=== PATIENT | female | born 1960 | race Caucasian/White ===

== ENCOUNTER 2017-03-05 16:37 | Emergency (ER) | payer OTHER ==
[~2017-03-05] VITALS: Ht 157.5 cm; Wt 87.1 kg
[2017-03-05] MEDS ORDERED: NS 1,000 ML IV SCH (16:50)
[2017-03-05] MEDS ORDERED: METOCLOPRAMIDE INJ 10MG/2ML VIAL (J2765) IV ONE (17:00)
[2017-03-05] MEDS ORDERED: MECLIZINE 25 MG TABLET PO ONE (17:00)
[2017-03-05] MEDS ORDERED: ZETI10TA2 PO (17:01)
[2017-03-05] MEDS ORDERED: CYCL10TA PO (17:01)
[2017-03-05] MEDS ORDERED: PARO20TA3 PO (17:01)
[2017-03-05] MEDS ORDERED: ASPI81TA85 PO (17:01)
[2017-03-05] MEDS ORDERED: MULT1CHW41 PO (17:01)
[2017-03-05] MEDS ORDERED: ESTR1TAB PO (17:01)
[2017-03-05] MEDS ORDERED: HYOS0.1258 PO (17:01)
[2017-03-05] MEDS ORDERED: VERA120T2 PO (17:01)
[2017-03-05] MEDS ORDERED: PRAV40TA2 PO (17:01)
--- NOTE | 2017-03-05 17:11 | REP ---
Clinical: Altered mental status . Comparison: None . Findings: The ventricles, sulci, and cisterns are normal in position and appearance. Ray-white differentiation is maintained. No acute intracranial hemorrhage, mass/mass effect, pathology or trauma/injury. No evidence for acute infarction. No extra-axial fluid collection. Calvarium is intact. Paranasal sinuses and mastoid air cells are clear. Impression: Normal noncontrast head CT. No evidence for acute intracranial pathology or trauma/injury. Signed by Wil Canas MD 03/05/2017 05:03 P
[2017-03-05 17:47] LABS: BASO % 0.3 % (0.0-1.0); EOS % 0.3 % (0.0-3.0); LARGE UNSTAINED CELL # 0.1 K/mm3 (0.0-0.4); LARGE UNSTAINED CELL % 0.7 % (0.0-4.0); LYMPH # 0.8 K/mm3 (1.5-4.5); LYMPH % 7.9 % (24.0-44.0); MEAN CORPUSCULAR HEMOGLOBIN 29.7 pg (27.0-33.0); MEAN CORPUSCULAR HGB CONC 33.3 g/dl (32.0-36.5); MEAN CORPUSCULAR VOLUME 89.2 fl (80.0-96.0); MONO # 0.1 K/mm3 (0.0-0.8); MONO % 1.3 % (0.0-5.0); NEUTROPHILS # 8.8 K/mm3 (1.8-7.7); NEUTROPHILS % 89.6 % (36.0-66.0); PLATELET COUNT, AUTOMATED 376 k/mm3 (150-450); RED CELL DISTRIBUTION WIDTH 13.2 % (11.5-14.5); WHITE BLOOD COUNT 9.8 K/mm3 (4.0-10.0)
[2017-03-05 18:03] LABS: ALBUMIN/GLOBULIN RATIO 1.25 (1.00-1.93); ALKALINE PHOSPHATASE 70 U/L (45-117); ALT/SGPT 22 U/L (12-78); ANION GAP 9 MEQ/L (8-16); AST/SGOT 14 U/L (15-37); BILIRUBIN,DIRECT 0.1 MG/DL (0.0-0.2); BILIRUBIN,TOTAL 0.4 MG/DL (0.2-1.0); BLOOD UREA NITROGEN 13 MG/DL (7-18); CALCIUM LEVEL 8.7 MG/DL (8.5-10.1); CARBON DIOXIDE LEVEL 23 MEQ/L (21-32); CHLORIDE LEVEL 107 MEQ/L (98-107); CREATININE FOR GFR 0.62 MG/DL (0.55-1.02); GLOMERULAR FILTRATION RATE > 60.0 (>51); GLUCOSE, FASTING 121 MG/DL (70-105); POTASSIUM SERUM 3.6 MEQ/L (3.5-5.1); SODIUM LEVEL 139 MEQ/L (136-145); TOTAL PROTEIN 7.2 GM/DL (6.4-8.2)
[2017-03-05 18:31] VITALS: BP 116/56
--- NOTE | 2017-03-06 07:20 | ECGEPIP ---
Stationary ECG Study [facility] - ED Test Date: 2017-03-05 Pat Name: NARA STAFFORD Department: Room: - Gender: F Director [employer]: lynsey : 1960 Requested By: KAMINI PALMER Order Number: [id number] Reading MD: Maranda Hirsch Measurements Intervals [place] Rate: 89 P: 51 CT: 177 QRS: 7 QRSD: 97 T: 30 QT: 361 QTc: 442 Interpretive Statements SINUS RHYTHM LEFT VENTRICULAR HYPERTROPHY AND ST-T CHANGE VS ISCHEMIA DECREASED RATE 09/15/13 Electronically Signed On 03-06-2017 7:20:11 EDT by Maranda Hirsch
== END 2017-03-05 18:58 | disposition home or self-care (01) ==
LOC: M ED 17:47
DX: H81.49 Vertigo of central origin, unspecified ear (principal); H83.09 Labyrinthitis, unspecified ear; Z79.82 Long term (current) use of aspirin; Z79.899 Other long term (current) drug therapy; E78.00 Pure hypercholesterolemia, unspecified; I10 Essential (primary) hypertension; M19.90 Unspecified osteoarthritis, unspecified site; M54.5 Low back pain; F41.9 Anxiety disorder, unspecified; F32.9 Major depressive disorder, single episode, unspecified

== ENCOUNTER → 2017-05-06 | Outpatient (CLI) | payer OTHER ==
[~2017-05-06] MED LIST: ASPI81TA85 PO; CYCL10TA PO; ESTR1TAB PO; HYOS0.1258 PO; MULT1CHW41 PO; PARO20TA3 PO; PRAV40TA2 PO; VERA120T2 PO; ZETI10TA30 PO
--- NOTE | 2017-05-06 15:16 | REPMRS ---
Patient History The patient states she had a clinical breast exam in 04/26 Patient is postmenopausal. Family history of breast cancer in paternal grandmother. Taking estrogen for 7 years. Digital Woman Screen Mammo: May 06, 2017 - Exam #: [id number] Bilateral CC and MLO view(s) were taken. Technologist: Zulay Costello, Technologist Prior study comparison: February 28, 2016, digital woman screen mammo performed at [facility]. February 27, 2015, digital woman screen mammo performed at [facility] to [facility]. FINDINGS: There are scattered fibroglandular densities. There has been no change in the appearance of the mammogram from the prior studies. There is a mild amount of residual fibroglandular tissue which is fairly symmetric. There is no interval development of dominant mass, architectural distortion, or clustered microcalcification suggestive of malignancy. ASSESSMENT: BI-RADS/ACR category 1 mammogram. Negative. Recommendation Routine screening mammogram in 1 year (for women over age 40). This mammogram was interpreted with the aid of an FDA-approved computer-aided dectection system. Electronically Signed By: Jack Ray MD 05/06/17 [id number]
== END ==
LOC: M WHC 12:48
PROVIDERS: ATTEND Nurse Practitioner Women's Health
DX: Z12.31 Encounter for screening mammogram for malignant neoplasm of breast (principal); Z78.0 Asymptomatic menopausal state; Z79.890 Hormone replacement therapy

== ENCOUNTER → 2017-05-06 | Outpatient (REF) | payer OTHER | LOC: M SFHCWAGY 13:25 | PROVIDERS: ATTEND Nurse Practitioner Women's Health | DX: Z12.4 Encounter for screening for malignant neoplasm of cervix (principal) ==

== ENCOUNTER 2018-05-04 05:47 | Day surgery (SDC) | payer OTHER ==
[~2018-05-04 05:47] MED LIST changes: -ASPI81TA85 PO; -CYCL10TA PO; -ESTR1TAB PO; -HYOS0.1258 PO; +LIDOCAINE 1% MDV 20ML VIAL SQ; +LR 1,000 ML IV; -MULT1CHW41 PO; -PARO20TA3 PO; -PRAV40TA2 PO; -VERA120T2 PO; -ZETI10TA30 PO
[2018-05-04] MEDS ORDERED: LIDOCAINE 2% INJ 100 MG/5 ML SDV (FOR ANES.) As Ordered ×2 (07:18)
[2018-05-04] MEDS ORDERED: MIDAZOLAM INJ 2 MG/2 ML VIAL (J2250) As Ordered ×2 (07:18)
[2018-05-04] MEDS ORDERED: PROPOFOL 200 MG/20 ML VIAL As Ordered ×2 (07:18)
[2018-05-04] MEDS ORDERED: fentaNYL 100 MCG/2 ML INJECTION (J3010) As Ordered ×2 (07:19)
[2018-05-04] MEDS: LIDOCAINE 2% MDV 20 ML VIAL As Ordered ×2 (07:46)
[2018-05-04] MEDS: BUPIVACAINE HCL 0.5% 10 ML VIAL As Ordered ×2 (07:47)
[2018-05-04] MEDS ORDERED: ONDANSETRON 4MG/2ML VIAL (J2405) As Ordered ×2 (07:49)
[2018-05-04] MEDS ORDERED: dexameTHASONE 4 MG/ML 1ML VIAL (J1100) As Ordered ×2 (07:49)
[2018-05-04] MEDS ORDERED: KETOROLAC 60 MG/2 ML VIAL (J1885) As Ordered ×2 (07:49)
[2018-05-04] MEDS: dexameTHASONE 4 MG/ML 1ML VIAL (J1100) As Ordered ×2 (07:56)
== END 2018-05-04 09:25 | disposition home or self-care (01) ==
LOC: M SDC 05:47
DX: M72.2 Plantar fascial fibromatosis (principal); M77.32 Calcaneal spur, left foot; B35.1 Tinea unguium; I10 Essential (primary) hypertension; R00.0 Tachycardia, unspecified; E78.5 Hyperlipidemia, unspecified; F41.9 Anxiety disorder, unspecified; M12.9 Arthropathy, unspecified; F32.9 Major depressive disorder, single episode, unspecified; Z88.8 Allergy status to other drugs, medicaments and biological substances; Z91.040 Latex allergy status; Z91.048 Other nonmedicinal substance allergy status; Z79.899 Other long term (current) drug therapy; Z79.82 Long term (current) use of aspirin; Z78.0 Asymptomatic menopausal state; Z92.3 Personal history of irradiation
CPT/HCPCS: 29893

== ENCOUNTER → 2018-07-06 | Outpatient (CLI) | payer OTHER | LOC: M WHC 14:40 | DX: Z12.31 Encounter for screening mammogram for malignant neoplasm of breast (principal); N60.31 Fibrosclerosis of right breast; N60.32 Fibrosclerosis of left breast | CPT/HCPCS: 77067 ==

== ENCOUNTER → 2018-07-06 | Outpatient (REF) | payer OTHER | LOC: M SFHCWAGY 14:42 | DX: Z12.4 Encounter for screening for malignant neoplasm of cervix (principal) ==

== ENCOUNTER 2019-02-08 13:32 | Emergency (ER) | payer OTHER ==
[~2019-02-08] VITALS: Ht 157.5 cm; Wt 86.8 kg
[2019-02-08 13:32] VITALS: BP 145/75
[~2019-02-08 13:32] MED LIST changes: +ASPI81TA85 PO; +CYCL10TA PO; +ESTR1TAB PO; +HYOS0.1258 PO; -LIDOCAINE 1% MDV 20ML VIAL SQ; +LOSA50TA88 PO; -LR 1,000 ML IV; +MEDR1TAB2 PO; +PARO15TA PO; +PARO20TA3 PO; +PRAV20TA2 PO; +PRAV40TA2 PO; +VERA120T2 PO; +ZETI10TA30 PO; +[UNRECOGNIZED DRUG - CODE] PO
[2019-02-08] MEDS ORDERED: FLAX1CAP5 PO (13:57)
[2019-02-08] MEDS ORDERED: ONDA4TAB6 PO (13:57)
[2019-02-08] MEDS ORDERED: CALCCAP4 PO (13:57)
[2019-02-08] MEDS ORDERED: MECL1CHW PO (13:57)
[2019-02-08] MEDS ORDERED: FLON1SPR NARES (13:57)
[2019-02-08] MEDS ORDERED: ALPRAZolam 0.5 MG TAB PO ONE (14:00)
[2019-02-08] MEDS ORDERED: XANA0.25 PO (14:51)
== END 2019-02-08 14:58 | disposition home or self-care (01) ==
LOC: M ED 13:32
DX: F41.1 Generalized anxiety disorder (principal); F43.0 Acute stress reaction; Z79.82 Long term (current) use of aspirin; Z79.899 Other long term (current) drug therapy; Z91.89 Other specified personal risk factors, not elsewhere classified; Z88.8 Allergy status to other drugs, medicaments and biological substances

== ENCOUNTER → 2019-07-07 | Outpatient (CLI) | payer OTHER ==
[~2019-07-07] MED LIST changes: +CALCCAP4 PO; +FLAX1CAP5 PO; +FLON1SPR NARES; +MECL1CHW PO; +ONDA4TAB6 PO; +XANA0.25 PO; +ZETI10TA16 PO; -ZETI10TA30 PO
--- NOTE | 2019-07-07 16:18 | REPMRS ---
Patient History The patient states she had a clinical breast exam in 06/2019. Patient is postmenopausal. Family history of breast cancer in paternal grandmother. Taking estrogen for 9 years. 3D TOMOSYNTHESIS WAS PERFORMED. The [facility] lifetime risk for breast cancer is 15.0%. Digital Woman Screen Mammo: July 07, 2019 - Exam #: [id number] Bilateral CC and MLO view(s) were taken. Technologist: Jodi Celaya, Technologist Prior study comparison: July 06, 2018, bilateral digital woman screen mammo performed at [facility]. May 06, 2017, digital woman screen mammo performed at [facility]. FINDINGS: There are scattered fibroglandular densities. There has been no change in the appearance of the mammogram from the prior studies. There is a mild amount of residual fibroglandular tissue which is fairly symmetric. There is no interval development of dominant mass, architectural distortion, or clustered microcalcification suggestive of malignancy. Assessment: BI-RADS/ACR category 1 mammogram. Negative Mammogram. Recommendation Routine screening mammogram in 1 year (for women over age 40). This mammogram was interpreted with the aid of an FDA-approved computer-aided dectection system. Electronically Signed By: Jack Ray MD 07/07/19 [id number]
== END ==
LOC: M WHC 15:02
PROVIDERS: ATTEND Nurse Practitioner Women's Health
DX: Z12.31 Encounter for screening mammogram for malignant neoplasm of breast (principal); Z78.0 Asymptomatic menopausal state; Z79.899 Other long term (current) drug therapy

== ENCOUNTER 2020-06-01 21:52 | Emergency (ER) | payer OTHER ==
[~2020-06-01] VITALS: Ht 157.5 cm; Wt 87.1 kg
[~2020-06-01 21:52] MED LIST changes: -ASPI81TA85 PO; +ASPI81TA86 PO; +CYCL-707 PO; -CYCL10TA PO; -PARO15TA PO; +PARO30TA4 PO; -VERA120T2 PO; +VERA120T9 PO
[2020-06-01] MEDS ORDERED: vitamin D (22:05)
[2020-06-01] MEDS ORDERED: RABIES IMMUNE GLOBULIN 1500 INTERNATIONAL UNIT/5ML VIAL (90375) IM ONE (23:15)
[2020-06-01] MEDS ORDERED: RABIES VACCINE HUMAN 2.5 INTERNATIONAL UNITS/ML VIAL (90675) IM ONE (23:15)
[2020-06-01] MEDS ORDERED: TETANUS/DIPHTHERIA TOX ADSORB ADULT 0.5ML SYR/VIAL (90714) IM ONE (23:15)
[2020-06-02 00:56] VITALS: BP 133/80
== END 2020-06-02 01:02 | disposition home or self-care (01) ==
LOC: M ED 21:52
DX: Z20.3 Contact with and (suspected) exposure to rabies (principal); Z23 Encounter for immunization; I10 Essential (primary) hypertension; E78.5 Hyperlipidemia, unspecified; Z79.899 Other long term (current) drug therapy; Z88.8 Allergy status to other drugs, medicaments and biological substances

== ENCOUNTER 2020-06-05 17:24 | Emergency (ER) | payer OTHER ==
[~2020-06-05] VITALS: Ht 157.5 cm; Wt 86.8 kg
[~2020-06-05 17:24] MED LIST changes: +vitamin D
[2020-06-05] MEDS ORDERED: RABIES VACCINE HUMAN 2.5 INTERNATIONAL UNITS/ML VIAL (90675) IM ONE (17:45)
[2020-06-05 18:45] VITALS: BP 133/67
== END 2020-06-05 18:46 | disposition home or self-care (01) ==
LOC: M ED 17:24
DX: Z23 Encounter for immunization (principal); Z20.3 Contact with and (suspected) exposure to rabies

== ENCOUNTER 2020-06-09 17:28 | Emergency (ER) | payer OTHER ==
[~2020-06-09] VITALS: Ht 157.5 cm; Wt 87.3 kg
[2020-06-09 17:29] VITALS: BP 131/76
[2020-06-09] MEDS ORDERED: RABIES VACCINE HUMAN 2.5 INTERNATIONAL UNITS/ML VIAL (90675) IM ONE (18:00)
== END 2020-06-09 18:13 | disposition home or self-care (01) ==
LOC: M ED 17:28
DX: Z23 Encounter for immunization (principal); Z20.3 Contact with and (suspected) exposure to rabies; Z79.82 Long term (current) use of aspirin; Z79.899 Other long term (current) drug therapy; Z88.8 Allergy status to other drugs, medicaments and biological substances

== ENCOUNTER 2020-06-16 16:32 | Emergency (ER) | payer OTHER ==
[~2020-06-16] VITALS: Ht 157.5 cm; Wt 86.9 kg
[2020-06-16 16:33] VITALS: BP 136/71
[2020-06-16] MEDS ORDERED: RABIES VACCINE HUMAN 2.5 INTERNATIONAL UNITS/ML VIAL (90675) IM ONE (17:00)
== END 2020-06-16 17:20 | disposition home or self-care (01) ==
LOC: M ED 16:32
DX: Z23 Encounter for immunization (principal); I10 Essential (primary) hypertension; E78.5 Hyperlipidemia, unspecified

== ENCOUNTER → 2020-07-25 | Outpatient (CLI) | payer OTHER ==
--- NOTE | 2020-07-26 08:13 | REPMRS ---
Patient History The patient states she had a clinical breast exam in July 2020. Family history of breast cancer in paternal grandmother. Taking estrogen for 9 years. Digital Woman Screen Mammo: July 25, 2020 - Exam #: [id number] Bilateral CC and MLO view(s) were taken. Technologist: Reema Villeda, Technologist Prior study comparison: July 07, 2019, bilateral digital woman screen mammo performed at [facility]. July 06, 2018, bilateral digital woman screen mammo performed at [facility]. May 06, 2017, digital woman screen mammo performed at [facility]. FINDINGS: There are scattered fibroglandular densities. The Volpara volumetric breast density category is:B. There has been no change in the appearance of the mammogram from the prior studies. There is a mild amount of scattered fibroglandular density which is fairly symmetric. There is no interval development of dominant mass, architectural distortion, or grouped microcalcification suggestive of malignancy. 3-D tomosynthesis shows no additional findings. Assessment: BI-RADS/ACR category 1 mammogram. Negative Mammogram. Recommendation Routine screening mammogram of both breasts in 1 year (for women over age 40). This patient's Lifetime Breast Cancer Risk is estimated at 14.5 %. This mammogram was interpreted with the aid of an FDA-approved computer-aided dectection system. Electronically Signed By: Feng Byers MD 07/26/20 0812
== END ==
LOC: M WHC 14:24
PROVIDERS: ATTEND Nurse Practitioner Women's Health
DX: Z12.31 Encounter for screening mammogram for malignant neoplasm of breast (principal); Z92.23 Personal history of estrogen therapy

== ENCOUNTER → 2021-04-25 | Outpatient (CLI) | payer OTHER ==
[2021-04-25 12:01] LABS: BASO # 0.1 10^3/uL (0.0-0.2); EOS # 0.4 10^3/uL (0.0-0.5); EOS % 5.5 % (0.0-3.0); HEMATOCRIT 41.1 % (36.0-47.0); HEMOGLOBIN 13.3 g/dl (12.0-15.5); LYMPH # 1.9 10^3/uL (1.5-5.0); LYMPH % 24.2 % (24.0-44.0); MEAN CORPUSCULAR HEMOGLOBIN 29.4 pg (27.0-33.0); MEAN CORPUSCULAR HGB CONC 32.4 g/dl (32.0-36.5); MEAN CORPUSCULAR VOLUME 90.9 fl (80.0-96.0); MONO # 0.7 10^3/uL (0.0-0.8); MONO % 8.9 % (2.0-8.0); NEUTROPHILS # 4.6 10^3/uL (1.5-8.5); PLATELET COUNT, AUTOMATED 351 10^3/uL (150-450); RED BLOOD COUNT 4.52 10^6/uL (4.00-5.40); WHITE BLOOD COUNT 7.6 10^3/uL (4.0-10.0)
[2021-04-25 12:45] LABS: ALBUMIN 3.6 GM/DL (3.2-5.2); ALT/SGPT 24 U/L (12-78); BILIRUBIN,TOTAL 0.4 MG/DL (0.2-1.0); BLOOD UREA NITROGEN 13 MG/DL (7-18); CALCIUM LEVEL 9.2 MG/DL (8.8-10.2); CARBON DIOXIDE LEVEL 26 MEQ/L (21-32); CHLORIDE LEVEL 109 MEQ/L (98-107); CHOLESTEROL LEVEL 182 MG/DL (<200); CREATININE FOR GFR 0.64 MG/DL (0.55-1.30); FERRITIN 36 NG/ML (8-252); FOLATE > 24.0 NG/ML; FREE T4 0.95 NG/DL (0.76-1.46); GLOMERULAR FILTRATION RATE > 60.0 (>45); GLUCOSE, FASTING 93 MG/DL (70-100); HDL CHOLESTEROL 52 MG/DL (>40); IRON (FE) 70 UG/DL (50-170); LDL CHOLESTEROL 97 MG/DL (<100); NON-HDL-C 130 MG/DL; PERCENT SATURATION 16.5 % (13.2-45.0); POTASSIUM SERUM 3.9 MEQ/L (3.5-5.1); SODIUM LEVEL 143 MEQ/L (136-145); TOTAL IRON BINDING CAPACITY 423 UG/DL (250-450); TRIGLYCERIDES LEVEL 165 MG/DL (<150); VITAMIN B12 LEVEL 463 PG/ML
[2021-04-25 13:08] LABS: HEMOGLOBIN A1c 5.6 %
== END ==
LOC: M LAB 10:25
PROVIDERS: ATTEND Nurse Practitioner Family
DX: G47.00 Insomnia, unspecified (principal)

== ENCOUNTER → 2022-02-02 | Outpatient (REF) | payer OTHER ==
[~2022-02-02] MED LIST changes: +LOSA50TA28 PO; -LOSA50TA88 PO
== END ==
LOC: M PLALAB 17:08
PROVIDERS: ATTEND Advanced Practice Midwife
DX: Z12.4 Encounter for screening for malignant neoplasm of cervix (principal)

== ENCOUNTER → 2022-02-02 | Outpatient (CLI) | payer OTHER | LOC: M WHC 13:05 | PROVIDERS: ATTEND Advanced Practice Midwife | DX: Z12.31 Encounter for screening mammogram for malignant neoplasm of breast (principal) ==

== ENCOUNTER → 2023-02-04 | Outpatient (CLI) | payer OTHER | LOC: M WHC 15:55 | PROVIDERS: ATTEND Specialist | DX: Z12.31 Encounter for screening mammogram for malignant neoplasm of breast (principal) ==

== ENCOUNTER → 2023-07-27 | Outpatient (REF) | payer OTHER ==
[~2023-07-27] MED LIST changes: +EZET10TA58 PO; -ZETI10TA16 PO
== END ==
LOC: M SFHCWAGY 12:58
PROVIDERS: ATTEND Specialist
DX: Z12.4 Encounter for screening for malignant neoplasm of cervix (principal)

== ENCOUNTER → 2024-02-08 | Outpatient (CLI) | payer OTHER | LOC: M WHC 15:24 | PROVIDERS: ATTEND Nurse Practitioner Family | DX: Z12.31 Encounter for screening mammogram for malignant neoplasm of breast (principal) ==

== ENCOUNTER → 2024-02-28 | Outpatient (CLI) | payer OTHER | LOC: M WUC 12:53 | PROVIDERS: ATTEND Student in an Organized Health Care Education/Training Program | DX: S20.211A Contusion of right front wall of thorax, initial encounter (principal); X58.XXXA Exposure to other specified factors, initial encounter; Y92.9 Unspecified place or not applicable ==

== ENCOUNTER 2024-05-27 16:15 | Emergency (ER) | payer OTHER ==
[~2024-05-27] VITALS: Ht 157.5 cm; Wt 86.8 kg
[~2024-05-27 16:15] MED LIST changes: +ONDA-282 PO; -ONDA4TAB6 PO
[2024-05-27] MEDS ORDERED: LEXA1TAB2 PO (16:31)
[2024-05-27 18:49] LABS: BASO # 0.1 10^3/uL (0.0-0.2); EOS # 0.1 10^3/uL (0.0-0.5); HEMATOCRIT 41.4 % (36.0-47.0); HEMOGLOBIN 13.9 g/dl (12.0-15.5); LYMPH # 1.5 10^3/uL (1.5-5.0); LYMPH % 21.3 % (24.0-44.0); MEAN CORPUSCULAR HEMOGLOBIN 29.9 pg (27.0-33.0); MEAN CORPUSCULAR HGB CONC 33.6 g/dl (32.0-36.5); MONO # 0.6 10^3/uL (0.0-0.8); MONO % 8.2 % (2.0-8.0); NEUTROPHILS # 4.8 10^3/uL (1.5-8.5); NEUTROPHILS % 67.4 % (36.0-66.0); PLATELET COUNT, AUTOMATED 339 10^3/uL (150-450); RED BLOOD COUNT 4.65 10^6/uL (4.00-5.40); WHITE BLOOD COUNT 7.2 10^3/uL (4.0-10.0)
[2024-05-27] MEDS: NS 1,000 ML IV ONE (19:05)
[2024-05-27] MEDS ORDERED: ISOVUE-370 76% 100ML VIAL As Ordered ONE (19:21)
[2024-05-27 19:22] LABS: ALKALINE PHOSPHATASE 82 U/L (46-116); ALT/SGPT 18 U/L (7.0-40); AST/SGOT 18 U/L (<34); BILIRUBIN,TOTAL 0.8 MG/DL (0.3-1.2); BLOOD UREA NITROGEN 7 MG/DL (9-23); CALCIUM LEVEL 9.3 MG/DL (8.3-10.6); CARBON DIOXIDE LEVEL 26 MMOL/L (20-31); CHLORIDE LEVEL 107 MMOL/L (98-107); GLOMERULAR FILTRATION RATE > 60.0 (>45); GLUCOSE, FASTING 89 MG/DL (74-106); POTASSIUM SERUM 3.6 MMOL/L (3.5-5.1); SODIUM LEVEL 139 MMOL/L (136-145)
[2024-05-27 19:31] LABS: CPK CREATINE PHOSPHOKINASE 100 U/L (34-145)
[2024-05-27 21:32] LABS: CK-MB VALUE MASS < 1.0 NG/ML (<3.6)
[2024-05-27 21:33] LABS: CPK CREATINE PHOSPHOKINASE 92 U/L (34-145); MB/CK RELATIVE INDEX 1.08 (< OR =4)
[2024-05-27 23:12] VITALS: TEMP 97.1
[2024-05-27 23:37] VITALS: BP 133/75; O2SAT 96
== END 2024-05-27 23:50 | disposition home or self-care (01) ==
LOC: M ED 16:15
DX: R42 Dizziness and giddiness (principal); F41.9 Anxiety disorder, unspecified; F32.A Depression, unspecified; I10 Essential (primary) hypertension; Z91.048 Other nonmedicinal substance allergy status; Z88.8 Allergy status to other drugs, medicaments and biological substances; Z79.82 Long term (current) use of aspirin; Z79.811 Long term (current) use of aromatase inhibitors; Z79.899 Other long term (current) drug therapy
CPT/HCPCS: 70450; 71275; 80047; 80053; 82550; 82553; 84484; 85025; 87486; 87581; 87633; 87798; 93005; 96360; 96361; 99285; Q9967

== ENCOUNTER → 2025-04-16 | Outpatient (CLI) | payer OTHER ==
[~2025-04-16] MED LIST changes: -HYOS0.1258 PO; +HYOS0.1297 PO; +LEXA1TAB2 PO; +MULT1CHW PO; -PRAV20TA2 PO; +PRAV20TA78 PO; -PRAV40TA2 PO; +PRAV40TA85 PO; -[UNRECOGNIZED DRUG - CODE] PO
== END ==
LOC: M WHC 14:00
PROVIDERS: ATTEND Nurse Practitioner Family
DX: Z12.31 Encounter for screening mammogram for malignant neoplasm of breast (principal)

== ENCOUNTER → 2025-05-09 | Outpatient (REF) | payer OTHER ==
[2025-05-11 14:08] LABS: HPV APTIMA Not Detected (Not Detected)
== END ==
LOC: M SFHCWAGY 15:19
PROVIDERS: ATTEND Specialist
DX: Z12.4 Encounter for screening for malignant neoplasm of cervix (principal); Z77.9 Other contact with and (suspected) exposures hazardous to health

== ENCOUNTER → 2025-08-17 | Outpatient (CLI) | payer MEDICARE | LOC: M SLEEP HO 11:18 | PROVIDERS: ATTEND Physician Assistant | DX: R40.0 Somnolence (principal); I48.0 Paroxysmal atrial fibrillation; G47.30 Sleep apnea, unspecified ==